=== PATIENT | female | born 1940 | race Caucasian/White ===

== ENCOUNTER 2019-06-01 06:50 | Outpatient (CLI) | payer MEDICARE, OTHER ==
[~2019-06-01 06:50] MED LIST: AMLO-150 PO; ASPI-496 PO; ATEN-103 PO; ATOR20TA PO; CLOP75TA52 PO; FERR-51 PO; LANS15TA6 PO; LEVO125T PO; ZOLP10TA5 PO; [UNRECOGNIZED DRUG - OTHER] PO
== END 2019-06-01 23:59 | disposition home or self-care (01) ==
LOC: CFH 06:50
PROVIDERS: ATTEND Physician Assistant Medical
DX: I08.3 Combined rheumatic disorders of mitral, aortic and tricuspid valves (principal); R06.02 Shortness of breath; Z87.891 Personal history of nicotine dependence; I25.10 Atherosclerotic heart disease of native coronary artery without angina pectoris
CPT/HCPCS: 93306